=== PATIENT | male | born 1935 | race Caucasian/White ===

== ENCOUNTER 2017-11-10 05:22 | Inpatient (IN) | payer MEDICARE, OTHER ==
[~2017-11-10] VITALS: Ht 175.3 cm; Wt 81.6 kg
--- NOTE | 2017-11-10 05:35 | NUR ---
PLZ SEE PRE OP ADMISSION NOTES FOR MORE INFORMATION
[2017-11-10] MEDS ORDERED: ACETAMINOPHEN 325 MG TABLET ONE (06:15)
[2017-11-10] MEDS ORDERED: CELECOXIB 100 MG CAPSULE ONE (06:15)
[2017-11-10] MEDS ORDERED: oxyCODONE HCL SR 10MG TAB.SR.12H PO ONE (06:15)
[2017-11-10] MEDS ORDERED: FENTANYL PF 100MCG/2ML AMPUL ONE ×2 (06:48→08:45)
[2017-11-10] MEDS ORDERED: MIDAZOLAM HCL 2 MG/2ML VIAL ONE (06:49)
[2017-11-10] MEDS ORDERED: HYDROMORPHONE INJ 2 MG/ML DISP.SYRIN ONE ×2 (06:49→08:26)
[2017-11-10] MEDS ORDERED: SUCCINYLCHOLINE CHLORIDE 20 MG/ML VIAL ONE (06:49)
[2017-11-10] MEDS ORDERED: TRANEXAMIC ACID 3,000 MG in SODIUM CHLORIDE IRRIG SOLUTION 70 ML IR ONE (07:00)
[2017-11-10] MEDS ORDERED: CLINDAMYCIN 900 MG/6 ML VIAL ONE (07:39)
[2017-11-10] MEDS ORDERED: KETOROLAC TROMETHAMINE INJ 30 MG/ML VIAL ONE (09:04)
[2017-11-10] MEDS ORDERED: BISACODYL SUPP (10 MG) 10 MG/SUPP.RECT SUPP.RECT RC PRN (09:30)
[2017-11-10] MEDS ORDERED: SENNOSIDES 8.6 MG TABLET PO PRN (09:30)
[2017-11-10] MEDS ORDERED: HYDROMORPHONE MDV 2 MG/ML VIAL IV PRN (09:30)
[2017-11-10] MEDS ORDERED: HYDROCODONE/APAP 5/325MG 1 EACH TABLET PO PRN ×2 (09:30)
[2017-11-10] MEDS ORDERED: ACETAMINOPHEN 325 MG TABLET PO PRN (09:30)
[2017-11-10 10:00] VITALS: BP 150/61
[2017-11-10] MEDS ORDERED: MAGNESIUM HYDROXIDE 30 ML UDC PO PRN (10:00)
[2017-11-10] MEDS ORDERED: diphenhydrAMINE HCL 25 MG CAPSULE PO PRN (10:00)
[2017-11-10] MEDS ORDERED: MENTHOL/CETYLPYRD (CEPACOL) 1 LOZ LOZENGE PO PRN (10:00)
[2017-11-10] MEDS ORDERED: MAG HYDROX/AL HYDROX/SIMETH 30 ML UDC PO PRN (10:00)
[2017-11-10] MEDS ORDERED: CLONIDINE HCL 0.1 MG TABLET PO PRN (10:00)
[2017-11-10] MEDS ORDERED: HYDROMORPHONE INJ 2 MG/ML DISP.SYRIN SQ PRN ×2 (10:00→13:00)
[2017-11-10] MEDS: IV LR 1000 ML 1,000 ML IV PRN ×2 (10:05→22:33)
[2017-11-10] MEDS: ONDANSETRON HCL/PF 4 MG/2 ML VIAL IV PRN ×2 (10:16→14:32)
[2017-11-10] MEDS ORDERED: HYDROCODONE/APAP 10/325MG 1 EA TABLET PO PRN (10:30)
[2017-11-10] MEDS ORDERED: SCOPOLAMINE HBR 1 EA PATCH.TD72 TD ONE (10:30)
[2017-11-10] MEDS ORDERED: oxyCODONE IR immediate release 5 MG PO PRN (10:30)
--- NOTE | 2017-11-10 10:30 | NUR ---
RN NOTES RECEIVED PATIENT FROM THE RECOVERY ROOM VIA [facility] BY TWO STAFF IN STABLE CONDITION. NOTED WITH PAIN. ALERT AND ORIENTED, TRANSFERED TO BED SAFELY. ON O2 AT 2 LPM VIA NASAL CANNULA TOLERATING WELL. BREATHING EVEN AND UNLABORED. BARNES CATH IN PLACE DRAINING CLEAR YELLOW WITH NO FOUL ODOR URINE. PATIENT SLEEPING BUT EASILY AROUSABLE. COMPLAINING OF NAUSEA. WILL CONTINUE TO MONITOR.
[2017-11-10] MEDS: PANTOPRAZOLE 40 MG TABLET.DR PO SCH ×2 (10:32→22:01)
[2017-11-10 12:00] VITALS: BP 162/62
[2017-11-10] MEDS ORDERED: LOSA50TA21 PO (12:09)
[2017-11-10] MEDS ORDERED: DOCU-141 PO (12:09)
[2017-11-10] MEDS ORDERED: RIVA10TA PO (12:09)
[2017-11-10] MEDS ORDERED: AMLO10TA6 PO (12:09)
[2017-11-10] MEDS ORDERED: FEXO1TAB11 PO (12:09)
[2017-11-10] MEDS ORDERED: NEBI10TA2 PO (12:09)
[2017-11-10] MEDS ORDERED: CHOL100044 PO (12:09)
[2017-11-10] MEDS: CLINDAMYCIN 600 MG in IV NS 0.9% 50 ML IV SCH ×2 (15:28→18:07)
[2017-11-10] MEDS: DOCUSATE SODIUM 100 MG CAPSULE PO SCH (17:13)
--- NOTE | 2017-11-10 18:00 | NUR ---
RN NOTES RECEIVED REPORT FROM RYLAN MARTINEZ, PT IN STABLE CONDITION, NO C/O PAIN AT THIS TIME, WILL CONT TO MONITOR
--- NOTE | 2017-11-10 19:32 | NUR ---
RN CLOSING NOTES PT REMAINED IN STABLE CONDITION, NO ACUTE DISTRESS NOTED, SAFETY MEASURES MAINTAINED, ALL NEEDS ATTENDED, ENDORSED TO PM SHIFT NURSE FOR MICHELLE
--- NOTE | 2017-11-10 19:35 | NUR ---
MS RN OPENING NOTES RECEIVED PT FROM AM RN IN STABLE CONDITION, A & O X 4, AWAKE, TALKING OVER THE PHONE. NO C/O PAIN, NO FACIAL GRIMACING, SEEMS TO BE SMILING, TALKATIVE OVER THE PHONE. DENIED ANY PAIN @ THIS TIME WHEN ASKED. IV ACCESS TO LEFT HAND, INTACT PATENT, RUNNING WITH LR ORDERED. BARNES CATH IN PLACE, FLOWING WITH YELLOW COLOR URINE. ON BED REST. LEFT HIP SX DRESSING INTACT. ON REGULAR DIET. WILL HAVE PT/OT EVAL IN AM. BED IN LOW LOCKED POSITION. CALL LIGHT WITHIN REACH. WILL CONTINUE TO MONITOR CLOSELY.
[2017-11-10 20:00] VITALS: BP 152/75
[2017-11-10] MEDS ORDERED: ZOLPIDEM TARTRATE 5 MG TABLET PO PRN (22:00)
--- NOTE | 2017-11-10 22:10 | NUR ---
PRN TYLENOL GIVEN PT C/O MILD PAIN TO LEFT LEG & PREFERRED TO TAKE ONLY TYLENOL @ THIS TIME. EXPLAINED TO THE PT TO NOTIFY THE NURSE FOR PAIN MEDICINE NEEDED, VERBALIZED UNDERSTANDING. WILL MONITOR CLOSELY.
[2017-11-11] MEDS: CLINDAMYCIN 600 MG in IV NS 0.9% 50 ML IV SCH (00:44)
--- NOTE | 2017-11-11 02:09 | NUR ---
MS RN NOTE PT NOTED TO BE SLEEPING COMFORTABLY @ THIS TIME. NO S/S OF PAIN NOTED SO FAR. OBSERVING CLOSELY
[2017-11-11 04:20] VITALS: BP 158/78
--- NOTE | 2017-11-11 06:16 | NUR ---
PRN CLONIDINE GIVEN PT'S BP NOTED TO BE HIGH 176/84, NO C/O DIZZINESS, NO HEADACHE VERBALIZED, DENIED ANY PAIN @ THIS TIME. PRN CLONIDINE GIVEN ORDERED. WILL REASSESS FOR EFFECTIVENESS.
--- NOTE | 2017-11-11 06:30 | NUR ---
DR REICH VISITED PT SEEN BY DR REICH, DISCUSSED PLAN OF CARE TODAY. IF PT REMAINS STABLE, POSSIBLE D/C HOME, PER MD. WILL ENDORSE TO AM RN.
[2017-11-11 07:04] LABS: HEMOGLOBIN 13.9 g/dL (13.5-17.5)
--- NOTE | 2017-11-11 07:24 | NUR ---
MS RN CLOSING NOTES PT SLEPT INTERMITTENTLY @ NIGHT, IN STABLE CONDITION, A & O X 4, AWAKE. DENIED ANY PAIN @ THIS TIME WHEN ASKED. IV ACCESS TO LEFT HAND, INTACT PATENT, RUNNING WITH LR ORDERED. BARNES CATH IN PLACE, FLOWING WITH CLEAR YELLOW COLOR URINE. ON BED REST. LEFT HIP SX DRESSING INTACT. ON REGULAR DIET. WILL HAVE PT/OT EVAL IN AM. ALL NEEDS ATTENDED TO & MET. BED IN LOW LOCKED POSITION. CALL LIGHT WITHIN REACH. ENDORSED TO AM RN FOR CONTINUITY OF CARE.
[2017-11-11 08:00] VITALS: BP 167/62
--- NOTE | 2017-11-11 08:03 | NUR ---
RN NOTE: PATIENT RECEIVED ALERT AWAKE ORIENTED X4. ON ROOM AIR, NO RESPIRATORY DISTRESS NOTED. DENIES PAIN & DISCOMFORT. BARNES CATH INTACT. TRIED TO REMOVED, PATIENT REQUEST TO REMOVE LATER TODAY. WILL ATTEMPT AGAIN. EDUCATION PROVIDED. SAFETY MEASURES OBSERVED. POST OP PRASAD 1, DRESSING INTACT LEFT HIP. ABDUCTION PILLOW & SCDs ON. CALL LIGHT WITHIN REACH. WILL CONTINUE TO MONITOR.
[2017-11-11] MEDS: DOCUSATE SODIUM 100 MG CAPSULE PO SCH (08:06)
[2017-11-11 08:30] VITALS: BP 158/64
[2017-11-11] MEDS ORDERED: CHOLECALCIFEROL 1,000 UNIT TABLET (VIT D3) PO SCH (09:00)
[2017-11-11] MEDS ORDERED: AMLODIPINE BESYLATE 10 MG TABLET PO SCH (09:00)
[2017-11-11] MEDS ORDERED: DOCUSATE SODIUM 100 MG CAPSULE PO SCH (09:00)
[2017-11-11 09:04] VITALS: BP 158/64
[2017-11-11] MEDS ORDERED: HYDR-552 PO (13:28)
--- NOTE | 2017-11-11 14:49 | NUR ---
RN NOTE: PATIENT DISCHARGE TO HOME WITH HOME HEALTH ALERT AWAKE ORIENTED X4. ON ROOM AIR, NO RESPIRATORY DISTRESS NOTED. DENIES PAIN & DISCOMFORT. SURGICAL SITE DRESSING INTACT. DISCHARGE INSTRUCTIONS GIVEN TO THE PATIENT & , SON, PATIENT VERBALIZE TO UNDERSTAND. PRESCRIPTION HAND OVER TO PATIENT. PER PATIENT HAS WALKER AT HOME, & KNOWS HOW TO USE. IV CATH REMOVED. APPLIED PRESSURE DRESSING. LEFT WITH ALL BELONGINGS WITH FAMILY VIA PRIVATE CAR.
[2017-11-11] MEDS ORDERED: RIVAROXABAN 10 MG TABLET PO SCH ×2 (17:00)
[2017-11-11] MEDS ORDERED: LOSARTAN POTASSIUM 50 MG TABLET PO SCH (18:00)
== END 2017-11-11 14:46 | disposition home health service (06) | DRG 470 ==
LOC: DS 05:22 → MEDSG1 09:57
PROVIDERS: ADMIT Specialist; ATTEND Specialist
PROC: 0SRB0JZ Replacement of Left Hip Joint with Synthetic Substitute, Open Approach (ICD-10-PCS; principal; 2017-11-10 09:05)
DX: M16.12 Unilateral primary osteoarthritis, left hip (principal); K21.9 Gastro-esophageal reflux disease without esophagitis; I25.10 Atherosclerotic heart disease of native coronary artery without angina pectoris; Z95.1 Presence of aortocoronary bypass graft; I10 Essential (primary) hypertension; Z79.01 Long term (current) use of anticoagulants; Z86.711 Personal history of pulmonary embolism; Z87.891 Personal history of nicotine dependence; Z87.442 Personal history of urinary calculi; G89.29 Other chronic pain; Z88.0 Allergy status to penicillin; Z88.2 Allergy status to sulfonamides
CPT/HCPCS: 36415; 85027-TC; 86850-TC; 86921-TC; 87081-TC; 88305-TC; 88311-TC; A4216; A4217; A6209; A6402; J0330; J1170; J1885; J2250; J2405; J2704; J2710; J3010; J3490; J7120; Z7610